=== PATIENT | male | born 1955 | race African-American/Black ===

== ENCOUNTER 2017-05-12 11:08 | Inpatient (IN) | payer OTHER ==
[2017-05-12] VITALS (8 sets, daily range): BP systolic 124–137; BP diastolic 71–78; PULSE 54–73; RESP 18–20; TEMP 97.1–97.6; O2SAT 98–99
[~2017-05-12] VITALS: Ht 190.5 cm; Wt 83.0 kg
[~2017-05-12 11:08] MED LIST: CENTCHW4 CHEW; SENN8.6T36 PO
[2017-05-12] MEDS ORDERED: MORPHINE SULFATE 4 MG/ML INJ IV ONE (12:00)
[2017-05-12] MEDS ORDERED: KETOROLAC TROMETHAMINE 30 MG/ML (IVP) VIAL IV PUSH ONE (12:00)
[2017-05-12] MEDS ORDERED: PROPOFOL 200 MG/20 ML AMP IV ONE (12:00)
[2017-05-12] MEDS ORDERED: LACTATED RINGER'S 1000 ML INJ 2,000 ML IV ONE (12:00)
[2017-05-12] MEDS ORDERED: PHENYLEPH/NS 1000 MCG/10 ML SYR IV ONE (12:00)
[2017-05-12] MEDS ORDERED: DEXAMETHASONE SOD PHOS 4 MG/ML VIAL IV ONE (12:00)
[2017-05-12] MEDS ORDERED: MIDAZOLAM HCL 2 MG/2 ML VIAL IV ONE (12:00)
[2017-05-12] MEDS ORDERED: GLYCOPYRROLATE 1 MG/5 ML SYRINGE IV PUSH ONE (12:00)
[2017-05-12] MEDS ORDERED: ceFAZolin INJ 1,000 MG VIAL IV ONE ×2 (12:00→15:01)
[2017-05-12] MEDS ORDERED: ROCURONIUM INJ 50 MG/5 ML SYRINGE IV PUSH ONE (12:00)
[2017-05-12] MEDS ORDERED: ONDANSETRON HCL 4 MG/2 ML VIAL IV PUSH ONE (12:00)
[2017-05-12] MEDS ORDERED: LIDOCAINE HCL 1% PF 5 ML AMPULE OTHER ONE (12:00)
--- NOTE | 2017-05-12 13:00 | PD.HP.UP ---
H&P Update Note The Pre-Admit History and Physical Examination regarding the above named patient was reviewed (including, but not limited to, vital signs, heart, lungs, co-morbid conditions), and upon re-examination it is noted that: the patient's condition has not significantly changed since the last examination. Shyam Buchanan MD May 12, 2017 13:00
[2017-05-12] MEDS ORDERED: ceFAZolin 1,000 MG/NS 100 ML IV SCH ×2 (14:00)
[2017-05-12] MEDS ORDERED: METRONIDAZOLE 500 MG/100 ML ISONTONIC SOLN IV SCH (14:00)
[2017-05-12] MEDS ORDERED: DO NOT ADM ANY ANTICOAGULANT DRUGS PRN (16:51)
[2017-05-12] MEDS ORDERED: *morphine SULFATE 8 MG/ML PERIprocedure ONLY ONE ×3 (16:58→17:40)
[2017-05-12] MEDS ORDERED: ACETAMINOPHEN 325 MG TAB PO PRN (17:00)
[2017-05-12] MEDS ORDERED: NALOXONE HCL 0.4 MG/ML AMP IV PUSH PRN (17:00)
[2017-05-12] MEDS ORDERED: ENALAPRILAT 1.25 MG/ML VIAL IV PUSH PRN (17:00)
[2017-05-12] MEDS ORDERED: POTASSIUM CHLOR 40 MEQ PREMIX 100 ML IV PRN (17:00)
[2017-05-12] MEDS ORDERED: POTASSIUM CHLOR 20 MEQ PREMIX 100 ML IV PRN (17:00)
[2017-05-12] MEDS ORDERED: ENALAPRILAT 2.5 MG/2 ML VIAL IV PUSH PRN (17:00)
[2017-05-12] MEDS ORDERED: BENZOCAINE 6 MG/MENTHOL 10 MG LOZENGE BUCCAL PRN (17:00)
[2017-05-12] MEDS ORDERED: ACETAMINOPHEN/HYDROcodone 325 MG/5 MG TAB PO PRN ×2 (17:00)
[2017-05-12] MEDS ORDERED: Post-op Orders (for Pharmacy) MISC XX ONE (17:00)
[2017-05-12] MEDS ORDERED: SODIUM CHLORIDE 0.9% FLUSH 5 ML FLUSH IVF PRN (17:00)
[2017-05-12] MEDS: D5-NS + KCL 20 MEQ INJ 1,000 ML IV SCH ×2 (17:30→23:05)
[2017-05-12] MEDS: MORPHINE SULFATE 30 MG/30 ML PCA IV SCH (17:32)
[2017-05-12] MEDS: DEXT 5%-NACL 0.9% 1000 ML INJ 1,000 ML IV SCH ×2 (19:02→23:05)
[2017-05-12] MEDS: SODIUM CHLORIDE 0.9% FLUSH 5 ML FLUSH IVF SCH (20:32)
[2017-05-12] MEDS: METOCLOPRAMIDE HCL 10 MG/2 ML VIAL IVS SCH (20:32)
[2017-05-12] MEDS: ONDANSETRON HCL 4 MG/2 ML VIAL IV PUSH PRN (20:32)
[2017-05-12] MEDS: metroNIDAZOLE 500 MG INJ 100 ML IV SCH (21:58)
[2017-05-12] MEDS: PCA - TOTAL MG MORPHINE DELIVERED PER SHIFT SCH (21:59)
[2017-05-13] VITALS (20 sets, daily range): BP systolic 110–158; BP diastolic 66–88; PULSE 53–75; RESP 17–18; TEMP 98.1–99.6; O2SAT 97–100
[2017-05-13] MEDS: D5-NS + KCL 20 MEQ INJ 1,000 ML IV SCH (05:19)
[2017-05-13] MEDS: metroNIDAZOLE 500 MG INJ 100 ML IV SCH ×2 (05:19→14:06)
[2017-05-13] MEDS: KETOROLAC TROMETHAMINE 30 MG/ML (IVP) VIAL IVP PRN ×2 (05:24→20:08)
[2017-05-13 05:27] LABS: AUTOMATED NEUTROPHIL # 9.5 TH/MM3 (1.8-7.7); BASOPHIL % 0.2 % (0.0-2.0); HEMATOCRIT 39.9 % (39.0-51.0); HEMOGLOBIN 13.5 GM/DL (13.0-17.0); LYMPH % 5.5 % (9.0-44.0); LYMPHOCYTE # 0.6 TH/MM3 (1.0-4.8); MEAN CELL VOLUME 99.5 FL (80.0-100.0); MEAN CORPUSCULAR HEMOGLOBIN 33.7 PG (27.0-34.0); MEAN CORPUSCULAR HGB CONC 33.9 % (32.0-36.0); MEAN PLATELET VOLUME 9.7 FL (7.0-11.0); MONOCYTE # 0.4 TH/MM3 (0-0.9); NEUT % 90.3 % (16.0-70.0); PLATELET COUNT 151 TH/MM3 (150-450); RED BLOOD COUNT 4.01 MIL/MM3 (4.50-5.90); RED CELL DISTRIBUTION WIDTH 13.8 % (11.6-17.2); WHITE BLOOD COUNT 10.5 TH/MM3 (4.0-11.0)
[2017-05-13] MEDS: PCA - TOTAL MG MORPHINE DELIVERED PER SHIFT SCH ×3 (05:51→22:00)
[2017-05-13 05:53] LABS: BICARBONATE 23.2 MEQ/L (21.0-32.0); CREATININE 0.93 MG/DL (0.60-1.30)
[2017-05-13] MEDS: METOCLOPRAMIDE HCL 10 MG/2 ML VIAL IVS SCH ×2 (09:11→20:07)
[2017-05-13] MEDS: PANTOPRAZOLE SODIUM 40 MG VIAL IVP SCH (09:11)
[2017-05-13] MEDS: PANTOPRAZOLE SOD 40 MG DELAYED RELEASE TAB PO SCH (09:11)
[2017-05-13] MEDS: SODIUM CHLORIDE 0.9% FLUSH 5 ML FLUSH IVF SCH ×2 (09:17→20:09)
[2017-05-13] MEDS ORDERED: PNEUMOCOCCAL POLYVALENT INJ 25 MCG/0.5 ML SYR IM ONE (10:00)
[2017-05-13] MEDS: DEXT 5%-NACL 0.9% 1000 ML INJ 1,000 ML IV SCH ×2 (14:06→22:00)
[2017-05-13] MEDS: MORPHINE SULFATE 30 MG/30 ML PCA IV SCH (15:51)
[2017-05-13] MEDS: ONDANSETRON HCL 4 MG/2 ML VIAL IV PUSH PRN (17:30)
[2017-05-13] MEDS: ALVIMOPAN 12 MG CAPSULE PO SCH (20:08)
--- NOTE | 2017-05-13 22:53 | HHI.PR ---
Subjective Remarks C/R Surg POD #1 afebrile, VSS UO good bhumika PO Objective - Vital Signs Date Time Temp Pulse Resp B/P (MAP) Pulse Ox O2 Delivery O2 Flow Rate FiO2 05/13/17 20:03 98.3 59 18 158/88 (111) 99 05/12/17 18:00 Room Air Result Diagram: 05/13/1744405/13/17444 Objective Remarks PE alert Abd - soft, wound dry, min tympany A/P Assessment and Plan Imp: stable post-op OOB dc estevez tx to floor Shyam Buchanan MD May 13, 2017 22:53
[2017-05-14] MEDS: D5-NS + KCL 20 MEQ INJ 1,000 ML IV SCH ×2 (00:55→12:55)
[2017-05-14 04:29] VITALS: BP 151/81; PULSE 58; RESP 18; TEMP 98.8; O2SAT 96
[2017-05-14] MEDS: PCA - TOTAL MG MORPHINE DELIVERED PER SHIFT SCH (05:58)
--- NOTE | 2017-05-14 06:40 | MP ---
cc: HANNAH DUMONT M.D. DATE OF SURGERY May 12, 2017 PREOPERATIVE DIAGNOSIS Carcinoma of the cecum. PROCEDURE Laparoscopic-assisted ascending colectomy. POSTOPERATIVE DIAGNOSIS Carcinoma of the cecum. SURGEON Dr. Dumont PROCEDURE The patient was placed in the supine position. After adequate general anesthesia his legs were placed in Coleman stirrups and supported appropriately. The abdomen and perineum were then prepped with Betadine solution and draped in the usual sterile fashion. Initially a small incision was made left of the umbilicus and Veress needle inserted establishing pneumoperitoneum. A 5-mm trocar was then inserted and laparoscopy confirmed some puckering in the cecum. There did not appear to be any significant adhesions to the parietal peritoneum. A second trocar was then placed in the lower midline and then the left upper quadrant. Laparoscopic mobilization of the cecum was then performed, elevating the cecum and right colon medially. The duodenum was identified and dissected free from the mesentery. An area in the hepatic flexure was freed from attachments to the right parietal peritoneum and then some of the liver bed. After this there appeared to be adequate mobilization to exteriorize the cecum for resection. A small right upper quadrant incision was then made dividing some of the rectus muscle and entering the peritoneal cavity, releasing the pneumoperitoneum. The cecum and terminal ileum were prolapsed up through the incision. There did appear to be some tethering at the region of the hepatic flexure. The incision had to be an enlarged to enable additional mobilization of the hepatic flexure entering the lesser sac, taking the gastrocolic omentum off the transverse colon. At this point there was enough mobilization to proceed with a resection. The bowel was then divided in the right transverse colon using the MAINE stapling device. The intervening mesentery was taken between Polina's, obtaining hemostasis with Vicryl ties. The bowel was then divided in the terminal ileum using the MAINE stapling device. Specimen was removed. Bowel continuity was then restored by firing the MAINE stapler across the antimesenteric ends of bowel, closing the enterotomy with a TA60 stapler. Mesenteric defect was closed with a running Vicryl suture and a 3-0 Vicryl crotch suture was placed as well. The bowel was returned to the abdominal cavity. The abdomen was irrigated with normal saline and hemostasis achieved at all sites. The transverse incision was closed anatomically reapproximating the respective fascial layers with running #1 PDS sutures. The subcu tissue was irrigated and the skin closed at all sites with a running #3-0 Vicryl suture. The wound area was washed with normal saline and dried, sterile dressing of Telfa and gauze applied. The patient tolerated the procedure quite well and was brought to the recovery room in stable condition. Sponge and needle counts were correct at the end of procedure. MD CHER Preciado/URSULA /11:44 PM /6:34 AM
[2017-05-14 07:36] LABS: AUTOMATED NEUTROPHIL # 4.5 TH/MM3 (1.8-7.7); BASOPHIL % 0.3 % (0.0-2.0); EOSINOPHIL % 0.5 % (0.0-4.0); HEMATOCRIT 39.4 % (39.0-51.0); HEMOGLOBIN 13.7 GM/DL (13.0-17.0); LYMPH % 21.4 % (9.0-44.0); LYMPHOCYTE # 1.4 TH/MM3 (1.0-4.8); MEAN CELL VOLUME 99.3 FL (80.0-100.0); MEAN CORPUSCULAR HEMOGLOBIN 34.5 PG (27.0-34.0); MEAN CORPUSCULAR HGB CONC 34.8 % (32.0-36.0); MEAN PLATELET VOLUME 10.4 FL (7.0-11.0); MONO % 6.3 % (0.0-8.0); MONOCYTE # 0.4 TH/MM3 (0-0.9); NEUT % 71.5 % (16.0-70.0); PLATELET COUNT 133 TH/MM3 (150-450); RED BLOOD COUNT 3.96 MIL/MM3 (4.50-5.90); WHITE BLOOD COUNT 6.3 TH/MM3 (4.0-11.0)
[2017-05-14 07:58] VITALS: BP 156/88; PULSE 68; RESP 19; TEMP 98.4; O2SAT 97
[2017-05-14 08:00] LABS: BICARBONATE 24.4 MEQ/L (21.0-32.0); CALCIUM 8.2 MG/DL (8.5-10.1); CREATININE 0.92 MG/DL (0.60-1.30)
--- NOTE | 2017-05-14 08:08 | HHI.PR ---
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
--- NOTE | 2017-05-14 08:08 | HHI.PR ---
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
--- NOTE | 2017-05-14 08:08 | HHI.PR ---
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
[2017-05-14] MEDS: PANTOPRAZOLE SOD 40 MG DELAYED RELEASE TAB PO SCH (08:49)
[2017-05-14] MEDS: ALVIMOPAN 12 MG CAPSULE PO SCH ×2 (08:49→21:00)
[2017-05-14] MEDS: METOCLOPRAMIDE HCL 10 MG/2 ML VIAL IVS SCH ×2 (08:49→21:00)
[2017-05-14] MEDS: PANTOPRAZOLE SODIUM 40 MG VIAL IVP SCH (08:51)
[2017-05-14] MEDS: SODIUM CHLORIDE 0.9% FLUSH 5 ML FLUSH IVF SCH ×2 (08:51→21:00)
[2017-05-14] MEDS: KETOROLAC TROMETHAMINE 30 MG/ML (IVP) VIAL IVP PRN ×2 (08:57→17:31)
[2017-05-14 12:00] VITALS: BP 150/79; PULSE 76; RESP 20; TEMP 99.8; O2SAT 98
[2017-05-14] MEDS ORDERED: PNEUMOCOCCAL POLYVALENT INJ 25 MCG/0.5 ML SYR IM ONE (13:30)
[2017-05-14 16:00] VITALS: BP 155/80; PULSE 67; RESP 21; TEMP 99.5; O2SAT 98
[2017-05-14] MEDS ORDERED: PANTOPRAZOLE SODIUM 40 MG VIAL IVP PRN (16:45)
[2017-05-14 20:22] VITALS: BP 136/81; PULSE 90; RESP 18; TEMP 99.9; O2SAT 98
[2017-05-15 00:03] VITALS: BP 150/87; PULSE 71; RESP 18; TEMP 99.1; O2SAT 98
[2017-05-15] MEDS: D5-NS + KCL 20 MEQ INJ 1,000 ML IV SCH (06:09)
--- NOTE | 2017-05-15 07:16 | HHI.PR ---
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
--- NOTE | 2017-05-15 07:16 | HHI.PR ---
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
--- NOTE | 2017-05-15 07:16 | HHI.PR ---
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
[2017-05-15] MEDS ORDERED: HYDR-3516 PO (07:21)
[2017-05-15] MEDS ORDERED: METOCLOPRAMIDE HCL 10 MG/2 ML VIAL IVS PRN (07:45)
[2017-05-15 08:00] VITALS: BP 138/79; PULSE 61; RESP 16; TEMP 99.7; O2SAT 98
[2017-05-15] MEDS: PANTOPRAZOLE SOD 40 MG DELAYED RELEASE TAB PO SCH (08:40)
[2017-05-15] MEDS: ALVIMOPAN 12 MG CAPSULE PO SCH (08:41)
[2017-05-15] MEDS: SODIUM CHLORIDE 0.9% FLUSH 5 ML FLUSH IVF SCH (08:42)
== END 2017-05-15 10:52 | disposition home or self-care (01) | DRG 331 ==
LOC: HSDI 12:09 → HCPC 18:30 → HCIN 05-13 10:25 → N07B 05-13 16:52
PROVIDERS: ADMIT Colon & Rectal Surgery; ATTEND Colon & Rectal Surgery
PROC: 0DTF0ZZ Resection of Right Large Intestine, Open Approach (ICD-10-PCS; principal; 2017-05-12 14:14)
DX: C18.0 Malignant neoplasm of cecum (principal); Z23 Encounter for immunization; Z85.46 Personal history of malignant neoplasm of prostate; Z87.891 Personal history of nicotine dependence; Z92.3 Personal history of irradiation
CPT/HCPCS: 80048; 85025; 86850; 86900; 86901; 88307; 88309; 90732; 94150; C9113; J0690; J1100; J1885; J2250; J2270; J2370; J2405; J2765; J3010; J3480; J7042; J7120